=== PATIENT | female | born 1995 | race Caucasian/White ===

== ENCOUNTER → 2018-08-03 00:50 | Observation (INO) ==
--- NOTE | 2018-08-03 00:37 | Discharge Summary ---
Date of Encounter: 08/03/18 Time of Encounter: 00:37 - Discharge Diagnosis (1) 26 weeks gestation of Priority: Primary Status: Acute Comments: Patient admitted to observation due to status post fall. FHR 140 bpm, minimal to moderate variability, +10x10 accels, no decels. No uterine activity noted. (2) Status post fall Priority: Secondary Status: Acute Comments: Patient is negative blood type, KHB returned negative. monitoring for 4 hours post fall. To follow up for routine care as scheduled. - Discharge Medications Allergies/Adverse Reactions: Allergy/AdvReac Type Severity Reaction Status Date / Time cefdinir Allergy Mild Diarrhea Verified 03/11/16 23:28 cephalexin Allergy Rash Verified 08/02/18 21:27 Data Procedures and tests throughout hospitalization: Laboratory Tests 08/02/18 22:21 Volume Blood 0 Labs on day of discharge: Labs from last 24 hours 08/02/18 22:21 Volume Blood 0 Date of admission: 08/02/18 21:16 Primary care physician: Xena Petty CNP Discharging clinician: Marine Santana Anticipated date of discharge: 08/03/18 - Patient Status Disposition: Home, Self-Care Condition: Good Functional capacity at discharge: independent ambulation Overall status at discharge: patient is progressing back to baseline - Discharge Instructions Follow Up With: Xena Petty CNP [Primary Care Provider] - - Diet and Activity Activity: resume usual activities as tolerated Diet: regular diet Hospital Course [facility] [employer] Hospital course: Daisy arrived this evening status post fall. She was at the [facility] with her family and her child walked down the [place] and she followed him and she slipped and fell on her rear end. She did not hit her abdomen and she denies bleeding. She reports positive movement, denies leakage of fluid. Her blood type is O- so she had a cage be drawn this evening which returned negative. She was monitored for 4 hours after the time of the fall. heart rate was appropriate for gestational age in no uterine activity was noted. She is to return to her OB physician for her routine care as previously scheduled. Time Attestation: Total time spent providing and/or coordinating discharge services: Time Spent: Less than 30 minutes Exam - Constitutional General appearance IM: A&O X 3, pleasant, no acute distress, answers questions appropriately - Respiratory Respiratory exam: Present: CTAB - Cardiovascular Cardiovascular exam IM: Present: RRR, +S1, +S2 - GI/Abdominal GI/Abdominal exam IM: normal bowel sounds, soft - Extremities Exam Extremities exam IM: Present: full ROM, normal capillary refill, normal inspection - Neurological Exam Neurological exam: alert, normal gait, oriented X3 - VTE Reasons for not Prescribing Prophylaxis: Treatment not Indicated - Low risk for VTE
[2018-08-03 01:01] LABS: Bilirubin,Urine Negative (Negative); Blood,Urine Negative (Negative); Clarity,Urine Clear (Clear); Color,Urine Yellow (Yellow); Glucose,Urine (UA) Normal (Normal); Ketones,Urine Negative (Negative); Leukocyte Esterase,Urine Trace (Negative); Nitrite,Urine Negative (Negative); PH,Urine 6.5 pH Units (5.0-8.0); Protein,Urine Negative (Neg-Trace); Specific Gravity,Urine 1.006 (1.010-1.025); Urobilinogen,Urine Normal (Normal)
[2018-08-03 01:02] LABS: Bacteria,Urine None Seen per hpf (None-Few); Hyaline Casts,Urine None Seen per lpf (None-Few); RBC,Urine 0-3 per hpf (0-3); Squamous Epithelial Cell,Urine Moderate per lpf (None-Few); WBC,Urine 0-3 per hpf (0-3)
[2018-08-03 02:21] LABS: Amphetamine Screen,Urine Negative ng/mL (Cutoff=1000); Barbiturate Screen,Urine Positive ng/mL (Cutoff=200); Benzodiazepines Screen,Urine Negative ng/mL (Cutoff=200); Cannabinoid Screen,Urine Negative ng/mL (Cutoff = 50); Cocaine Screen,Urine Negative ng/mL (Cutoff= 300); Opiate Screen,Urine Negative ng/mL (Cutoff=300); Phencyclidine Screen,Urine Negative ng/mL (Cutoff=25)
== END | disposition home or self-care (01) ==
LOC: 1NENULAB
PROVIDERS: ADMIT Registered Nurse; ATTEND Registered Nurse

== ENCOUNTER 2018-10-21 04:29 | Inpatient (IN) ==
[2018-10-21 03:56] LABS: Bilirubin,Urine Negative (Negative); Blood,Urine Negative (Negative); Clarity,Urine Clear (Clear); Color,Urine Yellow (Yellow); Glucose,Urine (UA) Normal (Normal); Ketones,Urine Negative (Negative); Leukocyte Esterase,Urine Negative (Negative); Nitrite,Urine Negative (Negative); PH,Urine 6.5 pH Units (5.0-8.0); Protein,Urine Negative (Neg-Trace); Urobilinogen,Urine Normal (Normal)
[2018-10-21 04:06] LABS: Amphetamine Screen,Urine Negative ng/mL (Cutoff=1000); Barbiturate Screen,Urine Negative ng/mL (Cutoff=200); Benzodiazepines Screen,Urine Negative ng/mL (Cutoff=200); Cannabinoid Screen,Urine Negative ng/mL (Cutoff = 50); Cocaine Screen,Urine Negative ng/mL (Cutoff= 300); Opiate Screen,Urine Negative ng/mL (Cutoff=300); Phencyclidine Screen,Urine Negative ng/mL (Cutoff=25)
[~2018-10-21 04:29] MED LIST: *HR* Nalbuphine 10 MG/ML AMPUL IVP PRN; Famotidine 20 MG/2 ML VIAL IVP PRN; Lidocaine 1% 20 ML MDV INFILT PRN; Metoclopramide 10 MG/2 ML VIAL IVP PRN; Ondansetron 4 MG/2 ML VIAL IVP PRN
[2018-10-21] MEDS ORDERED: Ringers Solution, Lactated 1,000 ML IVC SCH (04:30)
[2018-10-21] MEDS ORDERED: Vancomycin 1,000 MG VIAL ONE (05:10)
--- NOTE | 2018-10-21 05:26 | Anesthesia Evaluation PreOp ---
Date of Encounter: 10/21/18 Time of Encounter: 06:16 - Past History Planned Operation: Del, 37wks spont rom Cardiac History: Denies any Significant Hx Pulmonary History: Denies Any Significant HX FAMILY PSYCHOLOGIST History: Denies Any Significant HX Other Medical History: Denies Any Significant HX Anesthesia History: No Prior Anesthetic Complications, Past Anesthesia (previous epidural "wore out at the end") Alcohol Use: none Drug use: none Medications and Allergies Allergy/AdvReac Type Severity Reaction Status Date / Time cefdinir Allergy Mild Diarrhea Verified 03/11/16 23:28 cephalexin Allergy Rash Verified 08/02/18 21:27 Anesthesia Results - Labs 10/21/18 04:52 Anesthesia Exam - HEENT Pupil (Motor): Pupils equal Mallampati: II Teeth: Normal Oral Opening: Greater than 3 - FAMILY PSYCHOLOGIST LOC: Oriented FAMILY PSYCHOLOGIST Motor: Normal RUE, Normal LUE, Normal RLE, Normal LLE, Normal Face FAMILY PSYCHOLOGIST Sensory: Normal: RUE, LUE, RLE, LLE, Face - Cardiac Rhythm: Regular Murmur: None - Pulmonary Breath Sounds: bilateral Clear Respiratory Effort: Symmetrical Anesthesia Assess/Plan ASA Score: 2 Level of consciousness: Cooperative, Oriented Anesthetic Plan: General, Spinal, Epidural Monitoring Plan: Standard Monitors Recovery Plan: PACU
[2018-10-21] MEDS ORDERED: Epidural Premix (fent/bupiv) 110 ML EP SCH (05:30)
[2018-10-21 05:47] LABS: Basophils % 0.3 %; Eosinophils % 0.3 %; Hematocrit 39.1 % (35.3-44.9); Hemoglobin 13.4 g/dL (11.5-15.4); Immature Granulocytes % 0.8 % (0-4); Lymphocytes # 2.1 K/mcL (0.6-4.6); Lymphocytes % 14.4 %; Mean Corpuscular HGB Conc 34.3 g/dL (31.6-35.5); Mean Corpuscular Hemoglobin 31.8 pg (28.0-33.3); Mean Corpuscular Volume 92.7 fL (83.0-100.0); Monocytes # 0.8 K/mcL (0.0-1.3); Monocytes % 5.9 %; Neutrophils # 11.2 K/mcL (1.6-8.9); Platelet Count 168 K/mcL (140-400); Red Blood Count 4.22 M/mcL (3.82-4.97); Red Cell Distribution Width 12.5 % (11.5-14.5); Segmented Neutrophils % 78.3 %
[2018-10-21] MEDS ORDERED: Epidural Premix (fent/bupiv) 110 ML EP ONE (05:57)
[2018-10-21] MEDS ORDERED: Lidocaine -MPF 2% 5 ML VIAL ONE (05:59)
--- NOTE | 2018-10-21 06:30 | Anesthesia Procedures ---
Addendum entered and electronically signed by Kleber Figueroa CRNA 10/21/18 09:57: Infant Delivery Date: 10/21/18 Delivery Time: 08:18 Original Note: Date of Encounter: 10/21/18 Time of Encounter: 06:17 Procedures: Anesthesia - Epidural/Spinal Patient ID/Chart reviewed: Yes Patient examined: Yes OB Eval: Gestational age: term OB Eval: : 2 OB Eval: Hx Para: 1 OB Eval: Contractions: Non-stressed pattern Consent Obtained: Yes Supplemental Oxygen: None/Room Air Site Prep: Aseptic Technique, Sterile prep and drape, 0.5% Chlorhexidine/Alcohol Patient position: upright Local Anesthetic: Lidocaine 1% Amount of Local Anesthetic used: 2 Touhy Needle Gauge: 18 Touhy Needle Depth (cm): 7 Catheter Depth at Skin (cm): 12 Test Dose (1.5% Lido + Epi): Volume given (mls): 4 Test Dose Result: Negative Loading Dose: Other: 10ml from solution Loading Dose Administered: Thru Catheter Infusion Med: 0.125% Bupivacaine w/ 2 mcg/ml Fentanyl Infusion Rate (mls/hr): [address]: Tegaderm, Tape Interspace Used: L3-L4 Loss of Resistance (CATALINO): Yes (saline) Blood: No CSF: No Paresthesia: No Procedure: vss though out procedure, FHR per RN's stable
--- NOTE | 2018-10-21 07:10 | OB/GYN History & Physical ---
Date of Encounter: 10/21/18 Time of Encounter: 07:03 Assessment and Plan (1) 37 weeks gestation of Current visit: Yes Status: Acute Admit for spontaneous labor at 37w3d (2) NST (non-stress test) reactive Current visit: Yes Status: Acute FHR 145 bpm, moderate variability, +15x15 accels, occassional variables (3) Blood type O- Current visit: Yes Status: Acute Collect cord blood and complete Rhogam evaluation. (4) GBS (group B Streptococcus carrier), +RV culture, currently Current visit: Yes Status: Acute Positive results, allergy to PCN family and Clindamycin resistant according to sensitivity. Give Vancomycin 1 g every 12 hours until delivery (5) History of fourth degree perineal laceration Current visit: Yes Status: Acute 4th degree lac with previous delivery. That weighed 9#4 oz with compound presentation. Discussed options for this delivery. Consider mediolateral episiotomy if appropriate at time of delivery History of Present Illness Chief complaint: Labor evaluation HPI: Ms. Ventura is a 23 year old female at 37w3d who presents with complaints of contractions since approximately 0030 this morning. She reported consistent contractions since that time around every 2 minutes and painful enough she can't walk or talk through them. She reports positive movement, denies bleeding and leakage of fluid. While she was here for evaluation she experienced SROM for clear fluid at 0419. At that point we did admit her. Blood type O negative GBS Positive HbSAG negative T. Pall negative Rubella Immune Varicella Immune Past Med Surg Social Fam HX - Past Medical History Medical history: no medical history Psychiatric history: no psych history - Past Surgical History Surgical History: no surgical history Additional surgical history: wisdom teeth T&A - Social History Smoking Status: Never smoker Smokeless Tobacco Status: No Alcohol use: none Drug use: none Current living situation: Home - Independent, With Family Activity Level: Independent ambulation Recent Out of Country Travel Within the Last 8 Weeks: No Exposure or Possible Exposure to Illness During Travel: No - Family History Mother Adopted: No Family Member Ethnicity: Non- Living Status: Still Living Hx Family Cardiac Disorders: No Hx Family Respiratory Disorders: No Hx Family Cancer: No Hx Family GI Disorders: No Hx Family Genitourinary Disorders: No Hx Family Endocrine Disorder: No Hx Family Musculoskeletal Disorders: No Hx Family Neuromuscular Disorders: No Hx Family Neurologic Disorders: No Hx Family HEENT Disorders: No Hx Family Autoimmune Disorders: No Hx Family Reproductive Disorders: No Hx Family Psychosocial Disorders: No Hx Family Medical Disorders: No Obstetrical History - Pregnancies : 2 Para: 1 Term: 1 : 0 Ab's: 0 Livin - History/Complications History/Complications: 4th degree with previous delivery Medications and Allergies Allergy/AdvReac Type Severity Reaction Status Date / Time cefdinir Allergy Mild Diarrhea Verified 03/11/16 23:28 cephalexin Allergy Rash Verified 08/02/18 21:27 Exam - Constitutional Constitutional: well developed, well nourished, no acute distress, average body habitus - HEENT HEENT: Normocephaly - Neck Neck exam: full ROM - Lungs Respiratory exam: CTAB - Cardiovascular Cardiovascular exam: RRR, +S1, +S2 - Breasts Breast: bilateral: normal - Abdomen Abdomen: Present: bowel sounds normal, gravid, non tender - Extremities Extremities exam: full ROM, normal capillary refill, normal inspection - Vulva Vulva: bilateral: normal - Vagina Vagina: Present: normal moisture - Cervix Dilation: 5 (5-6 per RN exam) Effacement: 90 Station: 0 - Uterus Uterus exam: Present: normal size Results Result Diagrams: 10/21/18 04:52 Abnormal lab results WBC 14.3 K/mcL (4.3-11.1) H 10/21/18 04:52 Neutrophils # 11.2 K/mcL (1.6-8.9) H 10/21/18 04:52 All other labs normal. - VTE Reasons for not Prescribing Prophylaxis: Treatment not Indicated - Low risk for VTE
[2018-10-21] MEDS ORDERED: Oxytocin 20 units/ LR 1000 mL 20 UNIT/1,000 ML BAG IVC ONE ×2 (07:55→11:23)
--- NOTE | 2018-10-21 09:04 | OB/GYN Procedure Note ---
Delivery - Delivery Date: 10/21/18 Provider: Stacey Velasquez Intrapartum events: none Delivery induction: none Delivery monitor: external FHT, external uterine Anesthesia: epidural Quantitated Blood Loss: 200 - (s) Infant A Delivery Date: 10/21/18 Infant Delivery Time: Presentation: vertex Position: THEO Route of delivery: Gender: Male Viability: Viable Pounds: 7 Ounces: 6 Weight Gram: 3.35 kg at 1 minute: 8 at 5 mins: 8 Shoulder Dystocia: not encountered Specimens collected: cord blood Placenta: spontaneous Cord: 3 umbilical vessels - Repair Episiotomy: none Laceration Description: Periurethral (right - hemostatic) - Complications Delivery complications: none Delivery comments: This is a 23 year old G2 now P2002 who was admitted for spontaneous labor. She progressed without augmentation to the second stage of labor. She pushed for about 10 minutes. She delivered a viable, male infant, THEO "Andrews" over an intact perineum. A nuchal cord was not identified. A shoulder dystocia was not encountered. The infant was placed on the maternal abdomen and allowed to transition spontaneously. The cord was double clamped by senior mechanical estimator after pulsations ceased and cut by FOB. scores were 8 at 1 minute and 8 at 5 minutes. The infant weighed 7 lbs. 6 oz. (3350 g). The placented delivered spontaneously, intact (Campos) with a 3-vessel cord. Inspection revealed a rig ht periurethral laceration which was hemostatic. The uterus was firm with no active bleeding. EBL was 200 mL. Placenta and umbilical artery blood gases were not sent. There were no complications during the procedure. Mom and baby are skin to skin following delivery. - Disposition Mom disposition: stable in LDR [place] disposition: stable in LDR
[2018-10-21] MEDS ORDERED: Acetaminophen 325 MG TABLET PO PRN (11:35)
[2018-10-21] MEDS ORDERED: Benzocaine/Menthol 56 GM AEROSOL SPRAY TP PRN (11:35)
[2018-10-21] MEDS ORDERED: Prenatal Vit/FA 1 EACH TABLET PO SCH (11:35)
[2018-10-21] MEDS ORDERED: Oxytocin 20 units/ LR 1000 mL 20 UNIT/1,000 ML BAG IVC SCH (11:35)
[2018-10-21] MEDS ORDERED: Rho Immune Globulin 1,500 UNIT SYRINGE IM PRN (11:35)
[2018-10-21] MEDS: Ibuprofen 600 MG TABLET PO PRN (20:13)
[2018-10-22 05:27] LABS: Basophils % 0.2 %; Eosinophils # 0.1 K/mcL (0.0-0.6); Eosinophils % 0.8 %; Hematocrit 35.3 % (35.3-44.9); Hemoglobin 12.2 g/dL (11.5-15.4); Immature Granulocytes % 0.8 % (0-4); Lymphocytes # 2.5 K/mcL (0.6-4.6); Lymphocytes % 18.9 %; Mean Corpuscular HGB Conc 34.6 g/dL (31.6-35.5); Mean Corpuscular Hemoglobin 32.6 pg (28.0-33.3); Mean Corpuscular Volume 94.4 fL (83.0-100.0); Mean Platelet Volume 11.6 fL (9.4-12.4); Monocytes # 0.9 K/mcL (0.0-1.3); Monocytes % 6.7 %; Neutrophils # 9.6 K/mcL (1.6-8.9); Platelet Count 146 K/mcL (140-400); Red Blood Count 3.74 M/mcL (3.82-4.97); Red Cell Distribution Width 12.8 % (11.5-14.5); Segmented Neutrophils % 72.6 %
[2018-10-22] MEDS: Ibuprofen 600 MG TABLET PO PRN (07:30)
[2018-10-22 08:02] VITALS: BP 104/71
--- NOTE | 2018-10-22 09:27 | Discharge Summary ---
Date of Encounter: 10/22/18 Time of Encounter: 09:24 - Discharge Diagnosis (1) Blood type O- Priority: Secondary Status: Acute (2) (normal spontaneous vaginal delivery) Priority: Primary Status: Acute Comments: Pt meeting all milestones. Anticipate discharge home this afternoon. (3) Patient is a currently breast-feeding mother Priority: Secondary Status: Acute Comments: Pt has a pump, well established - Discharge Medications Prescriptions: New Ibuprofen [Motrin] 600 mg PO Q6HR PRN #30 tablet PRN Reason: Cramping Benzocaine/Menthol Hepler [Dermoplast Hepler] 1 appl TP QID PRN aerosol PRN Reason: See Comments Docusate [Colace] 100 mg PO BID #60 capsule Home Medications: Benzocaine/Menthol Hepler [Dermoplast Hepler] 1 appl TP QID PRN aerosol 10/22/18 [Rx] Docusate [Colace] 100 mg PO BID #60 capsule 10/22/18 [Rx] Ibuprofen [Motrin] 600 mg PO Q6HR PRN #30 tablet 10/22/18 [Rx] Allergies/Adverse Reactions: Allergy/AdvReac Type Severity Reaction Status Date / Time cefdinir Allergy Mild Diarrhea Verified 03/11/16 23:28 cephalexin Allergy Rash Verified 08/02/18 21:27 Data Procedures and tests throughout hospitalization: Laboratory Tests 10/21/18 10/21/18 10/21/18 03:45 03:45 04:52 WBC 14.3 H RBC 4.22 Hgb 13.4 Hct 39.1 MCV 92.7 MCH 31.8 MCHC 34.3 RDW 12.5 Plt Count 168 MPV 12.0 Immature Gran % 0.8 Seg Neutrophils % 78.3 Lymphocytes % 14.4 Monocytes % 5.9 Eosinophils % 0.3 Basophils % 0.3 Neutrophils # 11.2 H Lymphocytes # 2.1 Monocytes # 0.8 Eosinophils # 0.0 Basophils # 0.0 Urine Color Yellow Urine Clarity Clear Urine pH 6.5 Ur Specific [place] 1.010 Urine Protein Negative Urine Glucose (UA) Normal Urine Ketones Negative Urine Blood Negative Urine Nitrite Negative Urine Bilirubin Negative Urine Urobilinogen Normal Ur Leukocyte Esterase Negative Ur Culture Indicated? NO Urine Opiates Screen Negative Ur Barbiturates Screen Negative Ur Phencyclidine Scrn Negative Ur Amphetamines Screen Negative U Benzodiazepines Scrn Negative Urine Cocaine Screen Negative U Marijuana (THC) Screen Negative Ur Drug Screen Interp See Below Screen Baby's Blood Type Mother's Blood Type Rhogam Indicated Rhogam Req for Mother 10/21/18 10/22/18 09:31 04:45 WBC 13.2 H RBC 3.74 L Hgb 12.2 Hct 35.3 MCV 94.4 MCH 32.6 MCHC 34.6 RDW 12.8 Plt Count 146 MPV 11.6 Immature Gran % 0.8 Seg Neutrophils % 72.6 Lymphocytes % 18.9 Monocytes % 6.7 Eosinophils % 0.8 Basophils % 0.2 Neutrophils # 9.6 H Lymphocytes # 2.5 Monocytes # 0.9 Eosinophils # 0.1 Basophils # 0.0 Urine Color Urine Clarity Urine pH Ur Specific [place] Urine Protein Urine Glucose (UA) Urine Ketones Urine Blood Urine Nitrite Urine Bilirubin Urine Urobilinogen Ur Leukocyte Esterase Ur Culture Indicated? Urine Opiates Screen Ur Barbiturates Screen Ur Phencyclidine Scrn Ur Amphetamines Screen U Benzodiazepines Scrn Urine Cocaine Screen U Marijuana (THC) Screen Ur Drug Screen Interp Screen NEGATIVE Baby's Blood Type O RH POSITIVE Mother's Blood Type O RH NEGATIVE Rhogam Indicated YES Rhogam Req for Mother 1 Labs on day of discharge: Labs from last 24 hours 10/22/18 10/21/18 04:45 09:31 WBC 13.2 H RBC 3.74 L Hgb 12.2 Hct 35.3 MCV 94.4 MCH 32.6 MCHC 34.6 RDW 12.8 Plt Count 146 MPV 11.6 Immature Gran % 0.8 Seg Neutrophils % 72.6 Lymphocytes % 18.9 Monocytes % 6.7 Eosinophils % 0.8 Basophils % 0.2 Neutrophils # 9.6 H Lymphocytes # 2.5 Monocytes # 0.9 Eosinophils # 0.1 Basophils # 0.0 Screen NEGATIVE Baby's Blood Type O RH POSITIVE Mother's Blood Type O RH NEGATIVE Rhogam Indicated YES Rhogam Req for Mother 1 Date of admission: 10/21/18 04:29 Primary care physician: Xena Petty CNP Consults: 10/21/18 11:35 Consult to Body Painter [CONS] Routine Comment: Vaginal delivery, consult needed Discharging clinician: Rhoda Mcconnell Anticipated date of discharge: 10/22/18 - Patient Status Disposition: Home, Self-Care Condition: Good Functional capacity at discharge: independent ambulation Overall status at discharge: patient is progressing back to baseline - Discharge Instructions Follow Up With: Xena Petty CNP [Primary Care Provider] - Danyelle Ken DO [Partnered Physician] - - Diet and Activity Activity: increase activity as tolerated Diet: regular diet Hospital Course Reason for admission: active labor Delivery: Episiotomy: none Laceration: other Other procedures: none complications: none Discharge diagnosis: IUP at term delivered baby: male Hospital course: - Delivery Date: 10/21/18 Provider: Stacey Velasquez Intrapartum events: none Delivery induction: none Delivery monitor: external FHT, external uterine Anesthesia: epidural Quantitated Blood Loss: 200 - (s) A Infant Delivery Date: 10/21/18 Delivery Time: 08: Presentation: vertex Position: THEO Route of delivery: Gender: Male Viability: Viable Pounds: 7 Ounces: 6 Weight Gram: 3.35 kg at 1 minute: 8 at 5 mins: 8 Shoulder Dystocia: not encountered Specimens collected: cord blood Placenta: spontaneous Cord: 3 umbilical vessels - Repair Episiotomy: none Laceration Description: Periurethral (right - hemostatic) - Complications Delivery complications: none - Disposition Mom disposition: home PPD1 [place] disposition: home with mother, Time Attestation: Total time spent providing and/or coordinating discharge services: Time Spent: Less than 30 minutes Exam - Constitutional Vitals: Temp Pulse Resp BP Pulse Ox 97.6 F 69 16 104/71 98 10/22/18 08:01 10/22/18 08:01 10/22/18 08:01 10/22/18 08:01 10/22/18 08:01 General appearance IM: A&O X 3 - Respiratory Respiratory exam: Present: CTAB - Cardiovascular Cardiovascular exam IM: Present: RRR - GI/Abdominal GI/Abdominal exam IM: soft, no peritoneal signs - Uterine Tone: Firm Uterus Position: 1 Finger Below Umbilicus - Extremities Exam Extremities exam IM: Present: normal inspection - Neurological Exam Neurological exam: normal gait, oriented X3 - Psychiatric Additional comments: reports good mood, she declines contraception until PPV
== END 2018-10-22 12:30 | disposition home or self-care (01) | DRG 807 ==
LOC: 1NENULAB → 1NENUOBS 11:35
PROVIDERS: ADMIT Registered Nurse; ATTEND Registered Nurse